=== PATIENT | male | born 1970 | race Caucasian/White ===

== ENCOUNTER 2019-02-28 05:55 | Inpatient (IN) | payer BC ==
[2019-02-28] VITALS (9 sets, daily range): BP systolic 118–144
[~2019-02-28] VITALS: Ht 180.3 cm; Wt 156.9 kg
[2019-02-28] MEDS ORDERED: CEFAZOLIN SOD 2 GM in D5W 50 ML IV SCH (07:00)
[2019-02-28] MEDS ORDERED: LOSA50TA3 PO (07:04)
[2019-02-28] MEDS ORDERED: CEFAZOLIN SOD 2 GM in D5W 50 ML IV ONE (07:58)
[2019-02-28] MEDS ORDERED: ONDANSETRON HCL 4 MG/2 ML VIAL IVP PRN ×2 (13:00→14:15)
[2019-02-28] MEDS ORDERED: MORPHINE 4 MG/ML INJ. SYRINGE IVP PRN ×3 (13:00)
[2019-02-28] MEDS ORDERED: LR 1,000 ML IV.SOLN IV ONE (13:45)
[2019-02-28] MEDS ORDERED: ONDANSETRON HCL 4 MG/2 ML VIAL ONE (13:45)
[2019-02-28] MEDS ORDERED: LIDOCAINE/EPI 1% 1:100000 20 ML VIAL INJ ONE (13:45)
[2019-02-28] MEDS ORDERED: MIDAZOLAM HCL 5 MG/ML VIAL (VERSED) IV ONE (13:45)
[2019-02-28] MEDS ORDERED: fentaNYL CITRATE 250 MCG/5 ML AMP ONE (13:45)
[2019-02-28] MEDS ORDERED: SEVOFLURANE 15 MIN GAS INH ONE (13:45)
[2019-02-28] MEDS ORDERED: NS IRRIG SOLN 1000 ML IR ONE (13:45)
[2019-02-28] MEDS ORDERED: BACITRACIN 1 GM OINT TP ONE (13:45)
[2019-02-28] MEDS ORDERED: DEXAMETHASONE SOD PHOSPHATE 4 MG/ML VIAL ONE (13:45)
[2019-02-28] MEDS ORDERED: SUCCINYLCHOLINE CHLORIDE 20 MG/ML(QUELICIN) ONE (13:45)
[2019-02-28] MEDS ORDERED: PROPOFOL 200MG/ 20ML VIAL (DIPRIVAN) IV ONE (13:45)
[2019-02-28] MEDS ORDERED: HYDROcodone/ACETAMIN 5-325 MG TAB (NORCO/ VICODIN) PO PRN ×2 (14:15→16:45)
[2019-02-28] MEDS ORDERED: ONDANSETRON 4 MG ODT TAB PO PRN (14:15)
[2019-02-28] MEDS ORDERED: ALBUTEROL SULFATE 0.083% 2.5 MG/3 ML VIAL.NEB INH ONE (15:30)
[2019-02-28] MEDS ORDERED: MORPHINE 2 MG/ML INJ. SYRINGE IVP PRN (17:00)
[2019-02-28] MEDS: KCL 20 mEq in D5/0.45NS 1000mL 1,000 ML IV SCH (17:52)
[2019-02-28] MEDS: CALCIUM 500 MG/TAB PO SCH (20:17)
[2019-02-28 21:23] LABS: ALBUMIN 3.4 g/dL (3.4-4.8); CALCIUM 8.4 mg/dL (8.4-11.0)
[2019-03-01] MEDS: KCL 20 mEq in D5/0.45NS 1000mL 1,000 ML IV SCH ×4 (00:57→12:49)
[2019-03-01 01:31] VITALS: BP_SYST 134
[2019-03-01] MEDS ORDERED: LEVOTHYROXINE SODIUM 0.15 MG TABLET PO SCH (07:00)
[2019-03-01 07:38] LABS: ALBUMIN 3.2 g/dL (3.4-4.8); CALCIUM 8.2 mg/dL (8.4-11.0)
[2019-03-01 08:35] VITALS: BP_SYST 139
[2019-03-01] MEDS ORDERED: LOSARTAN POTASSIUM 50 MG TABLET (COZAAR) PO SCH (09:00)
[2019-03-01] MEDS: CALCIUM 500 MG/TAB PO SCH ×2 (10:20→15:45)
[2019-03-01 11:20] VITALS: BP_SYST 130
[2019-03-01] MEDS ORDERED: fentaNYL CITRATE/PF 100 MCG/2 ML AMP IVP ONE (13:45)
[2019-03-01 15:56] VITALS: BP_SYST 143
[2019-03-01 16:33] VITALS: BP_SYST 143
== END 2019-03-01 16:30 | disposition home or self-care (01) | DRG 627 ==
LOC: SMU 05:55 → SDS 05:55 → SMU 15:27 → SDS 15:28
PROVIDERS: ADMIT Otolaryngology; ATTEND Otolaryngology
PROC: 0GTH0ZZ Resection of Right Thyroid Gland Lobe, Open Approach (ICD-10-PCS; principal; 2019-02-28 08:02)
DX: E04.2 Nontoxic multinodular goiter (principal); I10 Essential (primary) hypertension; Z90.49 Acquired absence of other specified parts of digestive tract; F17.200 Nicotine dependence, unspecified, uncomplicated; M19.90 Unspecified osteoarthritis, unspecified site; E04.1 Nontoxic single thyroid nodule
CPT/HCPCS: 36415; 71045; 82040-TC; 82310-TC; 83970; 87081; 88305; 88307; C1782; J0330; J0690; J1100; J2250; J2270; J2405; J2704; J3010; J7060; J7120